=== PATIENT | male | born 2000 | race American Indian/Alaskan Native ===

== ENCOUNTER 2018-04-23 15:36 | Emergency (ER) | payer SELFPAY ==
--- NOTE | 2018-04-23 19:15 | Emergency Department Report ---
Chief Complaint: Urogenital-Male Stated Complaint: CHECK UP Time Seen by Provider: 04/23/18 19:11 - HPI History of Present Illness: pt c/o penile discharge a couple days appears clear dysuria no blistering, no lesions unprotected sexual intercourse, 1 partner MSE screening note: Focused history and physical exam performed. ED Disposition for MSE Condition: Stable
[2018-04-23 19:16] VITALS: BP 136/74
[2018-04-23] MEDS ORDERED: ZITHROMAX PO ONE (19:17)
[2018-04-23] MEDS ORDERED: ROCEPHIN IM ONE (19:17)
== END 2018-04-23 21:00 | disposition left against medical advice (07) ==
LOC: ED 15:36
DX: R36.9 Urethral discharge, unspecified (principal); Z53.21 Procedure and treatment not carried out due to patient leaving prior to being seen by health care provider

== ENCOUNTER 2018-05-14 22:02 | Emergency (ER) | payer OTHER ==
--- NOTE | 2018-05-14 22:19 | Emergency Department Report ---
Blank Doc - Documentation Documentation: This is a 17-year-old male that presents with sore throat. Stated has white p atches in the throat. This initial assessment/diagnostic orders/clinical plan/treatment(s) is/are subject to change based on patient's health status, clinical progression and re- assessment by fellow clinical providers in the ED. Further treatment and workup at subsequent clinical providers discretion. Patient/guardians urged not to elope from the ED as their condition may be serious if not clinically assessed and managed. Initial orders include: 1- Patient sent to [facility] for further evaluation and treatment 2- strep swab
[2018-05-15] MEDS ORDERED: DECADRON IM ONE (02:12)
[2018-05-15] MEDS ORDERED: TRIMOX PO ONE (02:12)
[2018-05-15] MEDS ORDERED: IBUPROFEN PO ONE (02:12)
--- NOTE | 2018-05-15 02:18 | Emergency Department Report ---
ED ENT HPI - General Chief complaint: Sore Throat Stated complaint: ALLERGIC REACTION Time Seen by Provider: 05/14/18 22:17 Source: patient Mode of arrival: Ambulatory Limitations: No Limitations - History of Present Illness Initial comments: Patient presents for URI with sore throat past 3 days is associated dysphagia or shortness of breath or wheezing or stridor no ear pain no headache no dizziness nonproductive cough. Symptoms exacerbated by swallowing symptoms relieved by nothing tried. MD complaint: sore throat Onset/Timin -: days(s) Location: throat Severity: moderate Severity scale (0 -10): 4 Quality: aching Consistency: constant Improves with: none Worsens with: swallowing Associated Symptoms: fever, pain with swallowing, sore throat - Related Data Previous Rx's Medication Instructions Recorded Last Taken Type Amoxicillin/K Clav Tab [Augmentin 1 tab PO Q12HR #20 tab 12/21/17 Unknown Rx 875MG TAB] Cetirizine HCl [ZyrTEC] 10 mg PO QAM 14 Days #14 capsule 12/21/17 Unknown Rx Fluticasone [Flonase] 1 spray NS QDAY 14 Days #1 bottle 12/21/17 Unknown Rx Ibuprofen [Motrin] 800 mg PO Q8HR PRN #12 tablet 12/21/17 Unknown Rx Amoxicillin 500 mg PO TID 10 Days #30 capsule 05/15/18 Unknown Rx Dextromethorphan/Benzocaine 1 each PO Q2H PRN #24 lozenge 05/15/18 Unknown Rx [Cepacol Sorethroat-Cough Linda] Ibuprofen 800 mg PO TID PRN #30 tablet 05/15/18 Unknown Rx predniSONE [Deltasone] 40 mg PO QDAY 5 Days #10 tab 05/15/18 Unknown Rx Allergies Allergy/AdvReac Type Severity Reaction Status Date / Time No Known Allergies Allergy Unverified 12/21/17 17:20 ED Dental HPI - General Chief complaint: Sore Throat Stated complaint: ALLERGIC REACTION Time Seen by Provider: 05/14/18 22:17 Source: patient Mode of arrival: Ambulatory Limitations: No Limitations - Related Data Previous Rx's Medication Instructions Recorded Last Taken Type Amoxicillin/K Clav Tab [Augmentin 1 tab PO Q12HR #20 tab 12/21/17 Unknown Rx 875MG TAB] Cetirizine HCl [ZyrTEC] 10 mg PO QAM 14 Days #14 capsule 12/21/17 Unknown Rx Fluticasone [Flonase] 1 spray NS QDAY 14 Days #1 bottle 12/21/17 Unknown Rx Ibuprofen [Motrin] 800 mg PO Q8HR PRN #12 tablet 12/21/17 Unknown Rx Amoxicillin 500 mg PO TID 10 Days #30 capsule 05/15/18 Unknown Rx Dextromethorphan/Benzocaine 1 each PO Q2H PRN #24 lozenge 05/15/18 Unknown Rx [Cepacol Sorethroat-Cough Linda] Ibuprofen 800 mg PO TID PRN #30 tablet 05/15/18 Unknown Rx predniSONE [Deltasone] 40 mg PO QDAY 5 Days #10 tab 05/15/18 Unknown Rx Allergies Allergy/AdvReac Type Severity Reaction Status Date / Time No Known Allergies Allergy Unverified 12/21/17 17:20 ED Review of Systems ROS: Stated complaint: ALLERGIC REACTION Other details as noted in HPI Constitutional: denies: chills, fever Eyes: denies: eye pain, eye discharge, vision change ENT: throat pain, congestion. denies: ear pain Respiratory: denies: cough, shortness of breath, wheezing Cardiovascular: denies: chest pain, palpitations Endocrine: no symptoms reported Gastrointestinal: denies: abdominal pain, nausea, diarrhea Genitourinary: denies: urgency, dysuria Musculoskeletal: denies: back pain, joint swelling, arthralgia Skin: denies: rash, lesions Neurological: denies: headache, weakness, paresthesias Psychiatric: denies: anxiety, depression Hematological/Lymphatic: denies: easy bleeding, easy bruising ED Past Medical Hx - Past Medical History Previous Medical History?: No - Surgical History Past Surgical History?: Yes - Social History Smoking Status: Current Every Day Smoker Substance Use Type: Marijuana - Medications Home Medications: Home Medications Medication Instructions Recorded Confirmed Last Taken Type Amoxicillin/K Clav Tab [Augmentin 1 tab PO Q12HR #20 tab 12/21/17 Unknown Rx 875MG TAB] Cetirizine HCl [ZyrTEC] 10 mg PO QAM 14 Days #14 capsule 12/21/17 Unknown Rx Fluticasone [Flonase] 1 spray NS QDAY 14 Days #1 bottle 12/21/17 Unknown Rx Ibuprofen [Motrin] 800 mg PO Q8HR PRN #12 tablet 12/21/17 Unknown Rx Amoxicillin 500 mg PO TID 10 Days #30 capsule 05/15/18 Unknown Rx Dextromethorphan/Benzocaine 1 each PO Q2H PRN #24 lozenge 05/15/18 Unknown Rx [Cepacol Sorethroat-Cough Linda] Ibuprofen 800 mg PO TID PRN #30 tablet 05/15/18 Unknown Rx predniSONE [Deltasone] 40 mg PO QDAY 5 Days #10 tab 05/15/18 Unknown Rx ED Physical Exam - General Limitations: No Limitations General appearance: alert, in no apparent distress - Head Head exam: Present: atraumatic, normocephalic, normal inspection - Eye Eye exam: Present: normal appearance, PERRL, EOMI Pupils: Present: normal accommodation - Expanded ENT Exam Expanded Ear exam: Present: normal external inspection Mouth exam: Absent: trismus Throat exam: Positive: tonsillar erythema, tonsillomegaly, tonsillar exudate, other (uvula midline mild swelling no stridor mild exudate no peritonsilar abscess airway is patent ). Negative: R peritonsillar mass, L peritonsillar mass - Neck Neck exam: Present: normal inspection, full ROM, lymphadenopathy. Absent: tenderness, meningismus, thyromegaly - Respiratory Respiratory exam: Present: normal lung sounds bilaterally. Absent: respiratory distress, wheezes, stridor, chest wall tenderness - Cardiovascular Cardiovascular Exam: Present: regular rate, normal rhythm, normal heart sounds. Absent: systolic murmur, diastolic murmur, rubs, gallop - GI/Abdominal GI/Abdominal exam: Present: soft, normal bowel sounds. Absent: tenderness, bruit, hernia - Rectal Rectal exam: Present: deferred - exam: Present: normal inspection - Extremities Exam Extremities exam: Present: normal inspection, normal capillary refill - Back Exam Back exam: Present: normal inspection, full ROM. Absent: tenderness, rash noted - Neurological Exam Neurological exam: Present: alert, oriented X3, CN II-XII intact, normal gait - Psychiatric Psychiatric exam: Present: normal affect, normal mood - Skin Skin exam: Present: warm, dry, intact, normal color. Absent: rash ED Course Vital Signs 05/14/18 22:16 Temperature 99.2 F Pulse Rate 87 Respiratory 18 Rate Blood Pressure 134/78 O2 Sat by Pulse 98 Oximetry ED Medical Decision Making - Lab Data Lab Results 05/14/18 Range/Units Unknown Group A Strep Rapid Positive A (Negative) - Medical Decision Making rapid strep is positive, plan amoxicillin, prednisone, ibuprofen, cepachol lozenges follow up with pcp 3-4 days return to ed if symptoms worsen pt carrol balized agreement and understanding of discharge plan. Critical care attestation.: If time is entered above; I have spent that time in minutes in the direct care of this critically ill patient, excluding procedure time. ED Disposition Clinical Impression: Strep throat Disposition: TO HOME OR SELFCARE Is pt being admited?: No Does the pt Need Aspirin: No Condition: Stable Instructions: Strep Throat (ED) Prescriptions: Amoxicillin 500 mg PO TID 10 Days #30 capsule Dextromethorphan/Benzocaine [Cepacol Sorethroat-Cough Linda] 1 each PO Q2H PRN #24 lozenge PRN Reason: throat pain predniSONE [Deltasone] 40 mg PO QDAY 5 Days #10 tab Ibuprofen 800 mg PO TID PRN #30 tablet PRN Reason: pain fever Referrals: [facility] [Outside] - 3-5 Days Forms: Work/School Release Form(ED) Time of Disposition: 02:30
[2018-05-15 02:46] VITALS: BP 123/76
== END 2018-05-15 02:46 | disposition home or self-care (01) ==
LOC: ED 22:02
DX: J02.0 Streptococcal pharyngitis (principal); F17.200 Nicotine dependence, unspecified, uncomplicated; F12.10 Cannabis abuse, uncomplicated
CPT/HCPCS: 87430; 96372; 99283; J1100